=== PATIENT | female | born 1990 | race Hispanic/Latino ===

== ENCOUNTER 2021-03-20 03:39 | Emergency (ER) | payer SELFPAY ==
[2021-03-20] MEDS ORDERED: Ondansetron PF 4 MG/2 ML Vial ONE (04:14)
[2021-03-20 04:29] LABS: #Basophils 0.1 10x3/uL (0.0-0.2); #Eosinphils 0.1 10x3/uL (0.0-0.5); #Monocytes 0.9 10x3/uL (0.0-1.1); #Neutrophils 9.7 10x3/uL (1.5-8.4); %Basophils 0.4 % (0.0-2.0); %Eosinophils 0.7 % (0.0-6.0); %Lymphocytes 22.5 % (18.0-47.0); %Monocytes 6.7 % (0.0-10.0); %Neutrophils 69.2 % (40.0-75.0); Hemoglobin 12.5 g/dL (12.0-15.5); Mean Corpuscular HGB CONC 33.5 g/dL (32.0-36.0); Mean Corpuscular Hemoglobin 28.9 pg (27.0-33.0); Mean Corpuscular Volume 86.3 fl (81.6-98.3); Mean Platelet Volume 9.5 fl (7.4-10.4); Platelet Count 436 10x3/uL (150-450); RBC Distribution Width 12.6 % (11.5-14.5); Red Blood Cell (RBC) Count 4.32 10x6/uL (3.90-5.03)
[2021-03-20 04:32] LABS: BHCG - Serum Negative (NEGATIVE)
[2021-03-20 04:33] LABS: Pregs Control Background? CLEAR/WHITE (CLR/WHITE); Pregs Control Bar Appear? YES (CONTROL BAR)
[2021-03-20 04:43] LABS: ALT (SGPT) 12 U/L (8-55); AST (SGOT) 15 U/L (5-34); Albumin 4.1 g/dL (3.5-5.0); Alkaline Phosphatase 53 U/L (40-110); Anion Gap 15 mmol/L (10-20); BUN (Urea Nitrogen) 9 mg/dL (7.0-18.7); Bilirubin, Total 0.3 mg/dL (0.2-1.2); Calc. Creatinine Clearance 0 mL/min (70-130); Calcium 9.4 mg/dL (7.8-10.44); Carbon Dioxide 24 mmol/L (22-29); Chloride 105 mmol/L (98-107); Globulin 2.8 g/dL (2.4-3.5); Glucose 113 mg/dL (70-105); Potassium 3.6 mmol/L (3.5-5.1); Protein, Total 6.9 g/dL (6.0-8.3); Sodium 140 mmol/L (136-145)
[2021-03-20] MEDS ORDERED: Haloperidol Lactate 5 MG/ML VIAL ONE (05:07)
== END 2021-03-20 05:21 | disposition home or self-care (01) ==
LOC: CSHERS 03:39
DX: R11.2 Nausea with vomiting, unspecified (principal); R19.7 Diarrhea, unspecified; G40.909 Epilepsy, unspecified, not intractable, without status epilepticus; Z87.891 Personal history of nicotine dependence
CPT/HCPCS: 71045; 80053; 84703; 85025; 93005; 96374; 96375; J1630; J2405

== ENCOUNTER 2021-09-11 16:53 | Emergency (ER) | payer SELFPAY ==
[2021-09-11] MEDS ORDERED: Fluorescein Opthalmic Strip ONE (18:21)
[2021-09-11] MEDS ORDERED: Tetracaine 0.5% PF 4 ML BOT ONE (18:22)
== END 2021-09-11 18:55 | disposition home or self-care (01) ==
LOC: CSHERS 16:53
DX: H16.001 Unspecified corneal ulcer, right eye (principal); G40.909 Epilepsy, unspecified, not intractable, without status epilepticus; F17.210 Nicotine dependence, cigarettes, uncomplicated
CPT/HCPCS: 99283

== ENCOUNTER 2023-02-13 10:26 | Emergency (ER) | payer BC, SELFPAY ==
[2023-02-13] MEDS ORDERED: Metoclopramide HCl 10 MG/2 ML VIAL ONE (11:19)
[2023-02-13] MEDS ORDERED: Famotidine/PF 20 mg/2ml Vial ONE ×2 (11:20→13:26)
[2023-02-13 11:21] LABS: Bilirubin Neg (Negative); Blood, Urine 10 (Negative); Clarity Clear (Clear); Glucose, Urine (Dipstick) Normal (Negative); Ketone, Urine Negative (Negative); Leukocyte 25 (Negative); Nitrite Negative (Negative); Protein, Urine (Dipstick) Negative (Neg-Trace); Urobilinogen Normal mg/dL (Less than 2); pH, Urine 6.5 (5.0-9.0)
[2023-02-13 11:23] LABS: #Eosinphils 0.1 10x3/uL (0.0-0.5); #Monocytes 0.7 10x3/uL (0.0-1.1); #Neutrophils 15.3 10x3/uL (1.5-8.4); %Basophils 0.2 % (0.0-2.0); %Eosinophils 0.4 % (0.0-6.0); %Lymphocytes 4.7 % (18.0-47.0); %Monocytes 4.4 % (0.0-10.0); Hemoglobin 14.7 g/dL (12.0-15.5); Mean Corpuscular HGB CONC 34.1 g/dL (32.0-36.0); Mean Corpuscular Hemoglobin 28.7 pg (27.0-33.0); Mean Platelet Volume 9.5 fl (7.4-10.4); Platelet Count 437 10x3/uL (150-450); RBC Distribution Width 12.6 % (11.5-14.5); Red Blood Cell (RBC) Count 5.13 10x6/uL (3.90-5.03)
[2023-02-13 11:28] LABS: BHCG - Serum Negative (NEGATIVE); Pregs Control Background? CLEAR/WHITE (CLR/WHITE); Pregs Control Bar Appear? YES (CONTROL BAR)
[2023-02-13 11:36] LABS: ALT (SGPT) 165 U/L (8-55); AST (SGOT) 161 U/L (5-34); Albumin 4.4 g/dL (3.5-5.0); Alkaline Phosphatase 63 U/L (40-110); Anion Gap 17 mmol/L (10-20); BUN (Urea Nitrogen) 18 mg/dL (7.0-18.7); Bilirubin, Total 0.4 mg/dL (0.2-1.2); Calc. Creatinine Clearance 0 mL/min (70-130); Carbon Dioxide 17 mmol/L (22-29); Chloride 106 mmol/L (98-107); Estimated GFR 111; Globulin 2.9 g/dL (2.4-3.5); Glucose 99 mg/dL (70-105); Lipase 16 U/L (8-78); Potassium 4.4 mmol/L (3.5-5.1); Protein, Total 7.3 g/dL (6.0-8.3); Sodium 136 mmol/L (136-145)
[2023-02-13] MEDS ORDERED: Iopamidol 300 61% 100 ML VIAL FS ONE (11:36)
[2023-02-13 11:41] LABS: Bacteria/HPF 1+ HPF (None Seen); RBC/HPF 0-3 HPF (0-3); Squamous Epithelial 21-50 HPF (0-3); WBC/HPF 0-3 HPF (0-3)
[2023-02-13] MEDS ORDERED: Ketorolac Tromethamine 30 MG/ML VIAL ONE (13:25)
[2023-02-13] MEDS ORDERED: Haloperidol Lactate 5 MG/ML VIAL ONE (13:25)
== END 2023-02-13 14:10 | disposition home or self-care (01) ==
LOC: CSHERS 10:26
DX: R11.2 Nausea with vomiting, unspecified (principal); R19.7 Diarrhea, unspecified; R79.89 Other specified abnormal findings of blood chemistry; N83.201 Unspecified ovarian cyst, right side; N28.1 Cyst of kidney, acquired; D72.829 Elevated white blood cell count, unspecified; F17.210 Nicotine dependence, cigarettes, uncomplicated
CPT/HCPCS: 71045; 74177; 80053; 81003; 81015; 83690; 84484; 84703; 85025; 93005; 96361; 96365; 96375; 96376; J1630; J1885; J2765; S0028

== ENCOUNTER 2024-05-01 22:25 | Emergency (ER) | payer BC ==
[2024-05-01] MEDS ORDERED: Dexamethasone 4 mg/ml Vial ONE (23:39)
[2024-05-01] MEDS ORDERED: diphenhydrAMINE 50 MG/ML VIAL ONE (23:39)
[2024-05-01] MEDS ORDERED: Famotidine/PF 20 mg/2ml Vial ONE (23:40)
== END 2024-05-02 00:55 | disposition home or self-care (01) ==
LOC: CSHERS 22:25
DX: T78.40XA Allergy, unspecified, initial encounter (principal); F17.290 Nicotine dependence, other tobacco product, uncomplicated
CPT/HCPCS: 96374; 96375; J1100; J1200; S0028

== ENCOUNTER 2024-10-25 08:29 | Emergency (ER) | payer OTHER, SELFPAY ==
[2024-10-25] MEDS ORDERED: Benzonatate 100 MG CAP ONE (09:05)
== END 2024-10-25 09:37 | disposition home or self-care (01) ==
LOC: CSHERS 08:29
DX: J06.9 Acute upper respiratory infection, unspecified (principal); F17.290 Nicotine dependence, other tobacco product, uncomplicated
CPT/HCPCS: 87081; 87428; 87430; 99283